=== PATIENT | female | born 1945 | race Caucasian/White ===

== ENCOUNTER 2016-09-29 06:15 | Inpatient (IN) | payer MEDICARE, OTHER ==
[~2016-09-29] VITALS: Ht 172.7 cm; Wt 48.9 kg
[~2016-09-29 06:15] MED LIST: CLON1 PO; DIVA250T45 PO; FAMO20 PO; GABA-529 PO; QUET200T PO
[2016-09-29] MEDS ORDERED: [UNRECOGNIZED DRUG - OTHER] PO (06:20)
[2016-09-29] MEDS ORDERED: TEMA15CA PO (06:20)
[2016-09-29] MEDS ORDERED: QUET100T PO (06:20)
[2016-09-29] MEDS ORDERED: AMIT50TA3 PO (06:20)
[2016-09-29] MEDS ORDERED: BACL10TA PO (06:20)
[2016-09-29] MEDS ORDERED: NALOXONE HCL 1 MG/ML 2 ML SYG ONE (06:22)
[2016-09-29] MEDS ORDERED: SODIUM CHLORIDE 0.9% 1,000 ML IV ONE ×4 (06:30→16:30)
[2016-09-29] MEDS ORDERED: NALOXONE HCL 1 MG/ML 2 ML SYG IVP ONE (06:30)
[2016-09-29 06:44] LABS: BASOPHILS # (AUTO) 0.03 K/uL (0.00-0.20); BASOPHILS % (AUTO) 0.2 % (0.0-2.0); EOSINOPHILS % (AUTO) 0.03 % (1.0-6.0); HEMATOCRIT 44.5 % (36-46); HEMOGLOBIN 14.2 g/dL (12.0-16.0); LYMPHOCYTES # (AUTO) 0.8 K/uL (1.0-4.8); MEAN CORPUSCULAR HEMOGLOBIN 29.5 pg (26.0-34.0); MEAN CORPUSCULAR VOLUME 92 fL (80-100); MONOCYTES # (AUTO) 0.5 K/uL (0.1-1.0); MONOCYTES % (AUTO) 3.3 % (2.0-9.0); NEUTROPHILS # (AUTO) 12.3 K/uL (1.8-7.7); PLATELET COUNT (AUTO) 383 K/uL (150-450); RED BLOOD CELL COUNT(AUTO) 4.83 MIL/uL (4.00-5.20); RED CELL DISTRIBUTION WIDTH 18.8 % (11.5-14.5); WHITE BLOOD COUNT (AUTO) 13.6 K/uL (4.5-11.0)
[2016-09-29 06:47] LABS: NEUTROPHILS % (AUTO) 90.4 % (40.0-70.0); RBC MORPHOLOGY COMMENT NORMAL RBC MORPH
[2016-09-29 07:01] LABS: ALANINE AMINOTRANSFERASE 20 U/L (12-78); ALBUMIN 3.2 g/dL (3.4-5.0); ANION GAP 16 mmol/L (8-16); ASPARTATE AMINOTRANSFERASE 34 U/L (15-37); BILIRUBIN,TOTAL 0.3 mg/dL (0.1-1.0); CALCIUM, TOTAL 9.6 mg/dL (8.8-10.5); CARBON DIOXIDE 24 mmol/L (22-29); CHLORIDE 99 mmol/L (98-107); CREATININE 2.34 mg/dL (0.60-1.30); GLOMERULAR FILTR. RATE CALC 21 mL/min (>60); SODIUM SERUM 139 mmol/L (136-145); TOTAL PROTEIN, SERUM 8.8 g/dL (6.4-8.2); UREA NITROGEN, BLOOD 22 mg/dL (7-18)
[2016-09-29 07:02] LABS: AMMONIA 26 umol/L (11-32); TROPONIN I < 0.02 ng/mL (0.00-0.05)
[2016-09-29 07:04] LABS: POTASSIUM 1.8 mmol/L (3.5-5.1)
[2016-09-29] MEDS ORDERED: POTASSIUM CHL 10 MEQ/WATER 100 ML IV ONE (07:10)
[2016-09-29 07:14] LABS: ACETAMINOPHEN < 2 mcg/mL (10-30)
[2016-09-29] MEDS ORDERED: POTASSIUM CHL 40 MEQ/D5-0.45NS 1,000 ML IV ONE (07:15)
[2016-09-29] MEDS ORDERED: POTASSIUM CHLORIDE 20 MEQ ER TABLET PO PRN (07:15)
[2016-09-29 07:17] LABS: B-TYPE NATRIURETIC PEPTIDE 25 pg/mL (0-100)
[2016-09-29 07:20] LABS: SALICYLATE 4.6 mg/dL (2.8-20.0)
[2016-09-29 08:43] LABS: MAGNESIUM 1.4 mg/dL (1.80-2.40)
[2016-09-29 08:46] LABS: POTASSIUM 2.7 mmol/L (3.5-5.1)
[2016-09-29] MEDS: POTASSIUM CHL 10 MEQ/WATER 50 ML IV PRN ×2 (09:00→09:50)
[2016-09-29 09:09] LABS: LACTIC ACID 3.4 mmol/L (0.4-2.0)
[2016-09-29 09:13] LABS: APPEARANCE,URINE TURBID (CLEAR); GLUCOSE, URINE (UA) 100 mg/dL (NEGATIVE); KETONES,URINE TRACE mg/dL (NEGATIVE); LEUKOCYTE ESTERASE ,URINE MODERATE (NEGATIVE); OCCULT BLOOD,URINE LARGE (NEGATIVE); PROTEIN,URINE SEE CONFIRM (NEGATIVE)
[2016-09-29 09:18] LABS: ADD UA MICROSCOPIC YES
[2016-09-29 09:26] LABS: SULFOSALICYLIC ACID,URINE 3+ (Negative)
[2016-09-29 09:26] LABS: ABG A-A DIFF O2 38.9 mmHg (10-20.0); ABG BASE EXCESS -8.9 mmol/L (-2.0-3.0); ABG OXYHEMOGLOBIN 92.4 % (94.0-100.0); ABG PCO2 30 mmHg (35-45); ABG PH 7.359 (7.35-7.450); ALLEN TEST, BLOOD GAS Positive; TEMPERATURE, FAHRENHEIT, BG 96.3 FAHREN (96.0-98.6)
[2016-09-29 09:29] LABS: COARSE GRANULAR CASTS,URINE 0-2 /LPF (None Seen); FINE GRANULAR CASTS,URINE 0-2 /LPF (None Seen); HYALINE CASTS, URINE 0-2 /LPF (None Seen); SQUAMOUS EPITHELIAL CELL,UR Moderate /LPF (None Seen)
[2016-09-29] MEDS ORDERED: PIPERACILLIN/TAZO 3.375 GM/D5W 50 ML IV ONE (09:45)
[2016-09-29] MEDS ORDERED: CefTRIAXone 1 GM/DEXTROSE 50 ML IV ONE (09:45)
[2016-09-29 10:19] LABS: REFLEX LACTIC ACID? YES YES
[2016-09-29 12:04] LABS: POTASSIUM 2.6 mmol/L (3.5-5.1)
[2016-09-29 16:18] LABS: MAGNESIUM 1.3 mg/dL (1.80-2.40)
[2016-09-29] MEDS: DEXTROSE 5%-0.45% SODIUM CHL 1,000 ML IV SCH (16:22)
[2016-09-29] MEDS: ALBUMIN HUMAN 25%-25GM/100ML 100 ML IV SCH ×2 (16:23→23:33)
[2016-09-29] MEDS ORDERED: ACETAMINOPHEN 325 MG TABLET PO PRN (16:30)
[2016-09-29] MEDS ORDERED: 0.9% SODIUM CHLORIDE 10 ML SYRINGE IVP PRN (16:30)
[2016-09-29] MEDS ORDERED: ONDANSETRON HCL 4 MG/2 ML VIAL IVP PRN (16:30)
[2016-09-29 16:41] LABS: POTASSIUM 2.2 mmol/L (3.5-5.1)
[2016-09-29 16:42] LABS: PHOSPHORUS 1.4 mg/dL (2.5-4.9)
[2016-09-29 16:55] LABS: CREATINE KINASE MB 39.9 ng/mL (0-5)
[2016-09-29] MEDS ORDERED: MAGNESIUM SULFATE 3 GM in DEXTROSE 5%-WATER 100 ML IV ONE (17:00)
[2016-09-29] MEDS ORDERED: MAGNESIUM HYDROXIDE SUSPENSION 30 ML UDCUP PO PRN (19:00)
[2016-09-29] MEDS ORDERED: BISACODYL 10 MG RECTAL RECTAL SUPPOSITORY PR PRN (19:00)
[2016-09-29] MEDS: LIDOCAINE HCL IV SCH ×4 (19:45→22:26)
[2016-09-29] MEDS: DEXTROSE 5% IV SCH ×4 (19:45→22:26)
[2016-09-29] MEDS: POTASSIUM CHLORIDE IV SCH ×4 (19:45→22:26)
[2016-09-29] MEDS: WATER IV SCH ×4 (19:45→22:26)
[2016-09-29 20:00] VITALS: BP 125/77
[2016-09-29] MEDS: DOCUSATE SODIUM 100 MG CAPSULE PO SCH (21:00)
[2016-09-29] MEDS: HEPARIN SODIUM,PORCINE 5,000 UNITS/ML VIAL SQ SCH (23:33)
[2016-09-30] VITALS (7 sets, daily range): BP systolic 97–105; BP diastolic 58–66
[2016-09-30] MEDS: ALBUMIN HUMAN 25%-25GM/100ML 100 ML IV SCH ×4 (04:05→23:19)
[2016-09-30 07:02] LABS: BASOPHILS % (AUTO) 0.4 % (0.0-2.0); EOSINOPHILS % (AUTO) 0.7 % (1.0-6.0); HEMATOCRIT 31.2 % (36-46); HEMOGLOBIN 9.8 g/dL (12.0-16.0); LYMPHOCYTES # (AUTO) 1.3 K/uL (1.0-4.8); LYMPHOCYTES % (AUTO) 14.7 % (22.0-44.0); MEAN CORPUSCULAR HEMOGLOBIN 29.2 pg (26.0-34.0); MEAN CORPUSCULAR HGB CONC 31.5 G/dL (31.0-37.0); MEAN CORPUSCULAR VOLUME 93 fL (80-100); MONOCYTES # (AUTO) 0.5 K/uL (0.1-1.0); MONOCYTES % (AUTO) 6.2 % (2.0-9.0); NEUTROPHILS # (AUTO) 6.7 K/uL (1.8-7.7); PLATELET COUNT (AUTO) 277 K/uL (150-450); RED BLOOD CELL COUNT(AUTO) 3.36 MIL/uL (4.00-5.20); RED CELL DISTRIBUTION WIDTH 18.2 % (11.5-14.5); WHITE BLOOD COUNT (AUTO) 8.5 K/uL (4.5-11.0)
[2016-09-30 07:21] LABS: ALBUMIN 3.9 g/dL (3.4-5.0); BILIRUBIN,TOTAL 0.1 mg/dL (0.1-1.0); CALCIUM, TOTAL 9.4 mg/dL (8.8-10.5); CREATININE 1.42 mg/dL (0.60-1.30); MAGNESIUM 2.6 mg/dL (1.80-2.40); TOTAL PROTEIN, SERUM 7.3 g/dL (6.4-8.2)
[2016-09-30 07:58] LABS: PHOSPHORUS 1.3 mg/dL (2.5-4.9)
[2016-09-30] MEDS ORDERED: POTASSIUM PHOS,M-BASIC-D-BASIC 20 MEQ in DEXTROSE 5%-WATER 100 ML IV ONE ×2 (08:15→18:00)
[2016-09-30] MEDS ORDERED: POTASSIUM CHLORIDE 20 MEQ ER TABLET PO ONE ×2 (08:15→18:00)
[2016-09-30] MEDS: PANTOPRAZOLE SODIUM 40 MG/VIAL IVP SCH (09:38)
[2016-09-30] MEDS: HEPARIN SODIUM,PORCINE 5,000 UNITS/ML VIAL SQ SCH ×3 (09:38→23:19)
[2016-09-30] MEDS: DOCUSATE SODIUM 100 MG CAPSULE PO SCH ×2 (09:39→20:59)
[2016-09-30] MEDS: DEXTROSE 5%-0.45% SODIUM CHL 1,000 ML IV SCH ×2 (11:03→20:58)
[2016-09-30 17:39] LABS: CALCIUM, TOTAL 9.4 mg/dL (8.8-10.5); CREATININE 1.17 mg/dL (0.60-1.30); PHOSPHORUS 1.8 mg/dL (2.5-4.9)
[2016-09-30 17:43] LABS: POTASSIUM 2.6 mmol/L (3.5-5.1)
[2016-09-30] MEDS ORDERED: POTASSIUM CHLORIDE 20 MEQ ER TABLET PO PRN (21:45)
[2016-09-30] MEDS: ZOLPIDEM TARTRATE 5 MG TABLET PO PRN (23:18)
[2016-10-01] MEDS: POTASSIUM CHL 10 MEQ/WATER 50 ML IV PRN ×4 (00:56→03:49)
[2016-10-01] MEDS: ALBUMIN HUMAN 25%-25GM/100ML 100 ML IV SCH (03:51)
[2016-10-01 04:30] VITALS: BP 100/62
[2016-10-01 07:44] VITALS: BP 112/56
[2016-10-01 08:12] LABS: ANION GAP 15 mmol/L (8-16); CALCIUM, TOTAL 9.6 mg/dL (8.8-10.5); CARBON DIOXIDE 21 mmol/L (22-29); CHLORIDE 107 mmol/L (98-107); CREATINE KINASE MB 3.2 ng/mL (0-5); CREATINE KINASE, TOTAL 430 U/L (26-192); CREATININE 0.99 mg/dL (0.60-1.30); GLOMERULAR FILTR. RATE CALC 56 mL/min (>60); PHOSPHORUS 2.4 mg/dL (2.5-4.9); POTASSIUM 3.8 mmol/L (3.5-5.1); SODIUM SERUM 143 mmol/L (136-145); UREA NITROGEN, BLOOD 6 mg/dL (7-18)
[2016-10-01] MEDS: HEPARIN SODIUM,PORCINE 5,000 UNITS/ML VIAL SQ SCH ×2 (08:45→16:57)
[2016-10-01] MEDS: PANTOPRAZOLE SODIUM 40 MG/VIAL IVP SCH (08:46)
[2016-10-01] MEDS: DOCUSATE SODIUM 100 MG CAPSULE PO SCH ×2 (08:56→19:47)
[2016-10-01 11:43] VITALS: BP 115/71
[2016-10-01] MEDS: POTASSIUM PHOS/SODIUM PHOS MIXTURE 1 POWDER PACKET PO SCH ×2 (12:48→22:18)
[2016-10-01] MEDS: DEXTROSE 5%-0.45% SODIUM CHL 1,000 ML IV SCH (12:59)
[2016-10-01 15:16] VITALS: BP 119/63
[2016-10-01] MEDS: ONDANSETRON HCL 4 MG/2 ML VIAL IVP PRN (16:57)
[2016-10-01] MEDS ORDERED: CefTRIAXone 1 GM/DEXTROSE 50 ML IV SCH (18:00)
[2016-10-01] MEDS ORDERED: SODIUM CHLORIDE 0.9% 0 ML ONE (19:33)
[2016-10-01 19:59] VITALS: BP 113/64
[2016-10-01] MEDS: ZOLPIDEM TARTRATE 5 MG TABLET PO PRN (22:18)
[2016-10-01 23:42] VITALS: BP 122/84
[2016-10-02] MEDS: HEPARIN SODIUM,PORCINE 5,000 UNITS/ML VIAL SQ SCH ×3 (00:02→16:00)
[2016-10-02] MEDS: ONDANSETRON HCL 4 MG/2 ML VIAL IVP PRN ×2 (00:02→06:35)
[2016-10-02 05:36] VITALS: BP 113/73
[2016-10-02 07:33] VITALS: BP 123/71
[2016-10-02 07:42] LABS: ANION GAP 14 mmol/L (8-16); CALCIUM, TOTAL 9.5 mg/dL (8.8-10.5); CARBON DIOXIDE 20 mmol/L (22-29); CHLORIDE 108 mmol/L (98-107); CREATININE 0.91 mg/dL (0.60-1.30); GLOMERULAR FILTR. RATE CALC > 60 mL/min (>60); PHOSPHORUS 3.3 mg/dL (2.5-4.9); POTASSIUM 3.8 mmol/L (3.5-5.1); SODIUM SERUM 142 mmol/L (136-145); UREA NITROGEN, BLOOD 6 mg/dL (7-18)
[2016-10-02] MEDS: PANTOPRAZOLE SODIUM 40 MG/VIAL IVP SCH (08:15)
[2016-10-02] MEDS: DOCUSATE SODIUM 100 MG CAPSULE PO SCH (09:00)
[2016-10-02] MEDS: DEXTROSE 5%-0.45% SODIUM CHL 1,000 ML IV SCH (09:16)
[2016-10-02] MEDS ORDERED: MAGNESIUM SULFATE 2 GM in DEXTROSE 5%-WATER 50 ML IV ONE (10:15)
[2016-10-02 11:13] VITALS: BP 121/79
[2016-10-02 15:09] LABS: IGG (IMMUNOFIXATION) 718 mg/dL (700-1600)
[2016-10-02 15:53] VITALS: BP 133/80
[2016-10-02] MEDS ORDERED: CEFUROXIME PO (18:09)
[2016-10-02] MEDS ORDERED: CEFUROXIME AXETIL 250 MG TABLET PO ONE (18:15)
[2016-10-03 07:40] LABS: COMPLEMENT C3 88 mg/dL (82-167); COMPLEMENT C4 23 mg/dL (14-44)
[2016-10-05 07:06] LABS: ALBUMIN URINE (ELP24) 11.8 %; ALPHA-1 URINE (ELP24) 5.1 %; ALPHA-2 URINE(ELP24) 28.4 %; BETA URINE(ELP24) 29.7 %; TOTAL PROTEIN URINE 86.8 mg/dL (Not Estab.)
== END 2016-10-02 19:27 | disposition home or self-care (01) | DRG 682 ==
LOC: EMS 06:16 → 5N 16:15 → 6N 10-02 10:48
PROVIDERS: ADMIT Hospitalist; ATTEND Hospitalist
DX: N17.9 Acute kidney failure, unspecified (principal); G93.40 Encephalopathy, unspecified; E44.0 Moderate protein-calorie malnutrition; M62.82 Rhabdomyolysis; N39.0 Urinary tract infection, site not specified; Z68.1 Body mass index [BMI] 19.9 or less, adult; E83.42 Hypomagnesemia; E83.39 Other disorders of phosphorus metabolism; E87.6 Hypokalemia; E86.0 Dehydration; D72.829 Elevated white blood cell count, unspecified; R80.9 Proteinuria, unspecified; D64.9 Anemia, unspecified; K21.9 Gastro-esophageal reflux disease without esophagitis; Z53.29 Procedure and treatment not carried out because of patient's decision for other reasons; F31.9 Bipolar disorder, unspecified; B96.4 Proteus (mirabilis) (morganii) as the cause of diseases classified elsewhere; Z86.19 Personal history of other infectious and parasitic diseases; Z93.2 Ileostomy status; Z88.6 Allergy status to analgesic agent; Z79.899 Other long term (current) drug therapy
CPT/HCPCS: 70450; 76770; 81050; 82570; 82575; 82784; 82805; 83605; 83735; 83930; 83935; 84100; 84132; 84133; 84156; 84166; 84295; 84300; 84540; 86038; 86160; 86334; 87086; 87324; 87449; 93005; 96361; 96365; 96367; 96375; 99291; C9113; G0480; G0481; J0696; J1644; J2310; J2405; J2543; J3475; J3480; J3490; J7050; J7060; P9046